=== PATIENT | male | born 1950 | race Caucasian/White ===

== ENCOUNTER 2020-06-20 18:17 | Emergency (ER) | payer SELFPAY ==
[~2020-06-20] VITALS: Ht 165.1 cm; Wt 61.2 kg
[2020-06-20] MEDS ORDERED: BACITRACIN1 EACH TOP (19:41)
[2020-06-20 19:55] VITALS: BP 146/66
== END 2020-06-20 19:55 | disposition home or self-care (01) ==
LOC: ED 18:17
DX: S01.81XA Laceration without foreign body of other part of head, initial encounter (principal); W20.8XXA Other cause of strike by thrown, projected or falling object, initial encounter; Y93.89 Activity, other specified; Y92.89 Other specified places as the place of occurrence of the external cause; Y99.8 Other external cause status